=== PATIENT | female | born 1980 | race Two or more races ===

== ENCOUNTER 2024-04-08 10:00 | Emergency (ER) | payer OTHER ==
[~2024-04-08] VITALS: Ht 162.6 cm; Wt 47.6 kg
[~2024-04-08 10:00] MED LIST: ANTICONCEPTIVAS; DICY10CA PO; INTESTINEX1 CAP PO; PROTONIX40 MG PO; ZANTAC150 M3 PO
[2024-04-08] MEDS ORDERED: KETOROLAC TROMETHAMINE 60 MG VIAL IM STA (11:03)
[2024-04-08] MEDS ORDERED: KETOROLAC TROMETHAMINE 60 MG VIAL IM ONE (11:06)
[2024-04-08 11:36] LABS: HEMATOCRIT 36.4 % (36.0-45.00); HEMOGLOBIN 12.7 g/dL (12.0-15.00); MEAN CELL VOLUME 97.2 fL (80.00-100.00); MEAN CORPUSCULAR HEMOGLOBIN 33.9 pg (27.00-32.0); MEAN CORPUSCULAR HGB CONC 34.9 g/dl (32.0-36.0); PLATELET COUNT 373 K/uL (150-450); RED BLOOD COUNT 3.75 M/uL (4.00-6.00); RED CELL DISTRIBUTION WIDTH 12.8 % (11.5-14.5)
[2024-04-08 12:02] LABS: URINE APPEARANCE Cloudy; URINE BILIRRUBIN Negative (NEGATIVE); URINE BLOOD Negative; URINE COLOR Yellow; URINE GLUCOSE Negative (NEGATIVE); URINE LEUKOCYTE Large; URINE NITRATE Positive; URINE PROTEIN Negative (NEGATIVE); URINE UROBILINOGEN 0.2 E.U./dl
[2024-04-08 12:06] LABS: URINE EPITHELIAL CELLS 9.8 uL (0.0-38.8); URINE WBC 831.9 uL (0.0-23.2)
[2024-04-08 12:11] LABS: URINE BACTERIA > 9821.5 uL (0.0-1933)
[2024-04-08] MEDS ORDERED: CEFTRIAXONE SODIUM 1,000 MG VIAL IV SCH (12:15)
[2024-04-08 12:17] LABS: CALCIUM 9.8 mg/dL (8.5-10.1); CREATININE SERUM 0.52 mg/dL (0.55-1.02); GFR 129.95; POTASSIUM 4.27 mEq/L (3.5-5.1)
[2024-04-08] MEDS ORDERED: LIDOCAINE HCL 1% 10ML VIAL ONE (12:22)
[2024-04-08] MEDS ORDERED: CEFTRIAXONE SODIUM 1,000 MG VIAL ONE (12:23)
== END 2024-04-08 13:44 | disposition home or self-care (01) ==
LOC: ER 10:01
PROVIDERS: General Practice
DX: N39.0 Urinary tract infection, site not specified (principal)

== ENCOUNTER 2025-05-22 19:17 | Emergency (ER) | payer OTHER ==
[~2025-05-22] VITALS: Ht 162.6 cm; Wt 42.6 kg
[2025-05-22] MEDS ORDERED: ORPHENADRINE CITRATE 30 MG/ML AMPUL IM ONE (20:00)
[2025-05-22] MEDS ORDERED: KETOROLAC TROMETHAMINE 60 MG VIAL IM ONE (20:00)
[2025-05-22] MEDS ORDERED: NORFLEX100MG PO (21:27)
[2025-05-22] MEDS ORDERED: DICLOFENAC SODI75 MG PO (21:27)
== END 2025-05-22 21:51 | disposition home or self-care (01) ==
LOC: ER 19:17
DX: G89.11 Acute pain due to trauma (principal); M79.661 Pain in right lower leg; T07.XXXA Unspecified multiple injuries, initial encounter; Z91.011 Allergy to milk products